=== PATIENT | male | born 1970 | race Caucasian/White ===

== ENCOUNTER 2017-08-23 21:46 | Observation (INO) | payer OTHER ==
[~2017-08-23] VITALS: Ht 188 cm; Wt 132.5 kg
[2017-08-24 00:05] LABS: HEMATOCRIT 44.8 % (38.0-50.0); HEMOGLOBIN 15.2 G/DL (12.5-16.6); MCH 32.4 PG (29.0-34.0); MCHC 33.9 G/DL (30.0-36.0); MCV 95.5 FL (86-99); PLATELET COUNT 203 K/uL (156-360); RBC DIS.WIDTH-CV 13.1 % (11.8-14.6); RBC DIS.WIDTH-SD 46.6 % (39-53); RED BLOOD COUNT 4.69 M/uL (4.00-5.50); WHITE BLOOD COUNT 8.3 K/uL (4.1-10.2)
[2017-08-24 00:14] LABS: CHLORIDE 106 mEq/L (99-109); POTASSIUM 3.7 mEq/L (3.7-5.4); SODIUM 144 mEq/L (136-147)
[2017-08-24 00:16] LABS: GLUCOSE 112 mg/dL (70-99)
[2017-08-24 00:19] LABS: SERUM ETHYL ALCOHOL 358 mg/dL
[2017-08-24 00:20] LABS: GFR ESTIMATE (CALCULATED) > 59 mL/min/ (58.99-99999)
[2017-08-24 00:21] LABS: UREA NITROGEN (BUN) 14 mg/dL (9-23)
[2017-08-24 12:13] LABS: AMPHETAMINE NEGATIVE (500 ng/mL); BENZODIAZEPINES PRESUMPTIVE POSITIVE (150 ng/mL); COCAINE NEGATIVE (150 ng/mL); METHAMPHETAMINE NEGATIVE (500 ng/mL); OPIATES (MORPHINE) NEGATIVE (100 ng/mL); PHENCYCLIDINE NEGATIVE (25 ng/mL); THC CANNABINOIDS NEGATIVE (50 ng/mL)
[2017-08-24 12:14] LABS: BARBITURATES NEGATIVE (200 ng/mL); BUPRENORPHINE NEGATIVE (10 ng/mL); METHADONE NEGATIVE (200 ng/mL); OXYCODONE NEGATIVE (100 ng/mL); PROPOXYPHENE NEGATIVE (300 ng/mL); TRICYCLIC ANTIDEPRESSANTS NEGATIVE (300 ng/mL)
[2017-08-24] MEDS ORDERED: LOSARTAN-HCTZ1 EACH PO (12:32)
[2017-08-24] MEDS ORDERED: AMLODIPINE BESYL5 MG PO (12:32)
[2017-08-24 13:02] LABS: BENZODIAZEPINES, URINE SCREEN Negative (200 ng/mL)
[2017-08-24] MEDS ORDERED: ONE DAILY1 EAC3 PO (14:27)
[2017-08-24] MEDS ORDERED: DICLOFENAC SODI75 MG PO (14:27)
[2017-08-24 15:10] LABS: MAGNESIUM 2.4 mg/dL (1.3-2.7)
[2017-08-24 18:05] VITALS: BP 159/86
[2017-08-24 19:54] VITALS: BP 152/69
[2017-08-24 23:43] VITALS: BP 132/60
[2017-08-25 04:10] VITALS: BP 157/75
[2017-08-25 08:00] VITALS: BP 139/72
[2017-08-25 11:25] VITALS: BP 131/63
[2017-08-25 16:53] VITALS: BP 157/68
[2017-08-25 20:07] VITALS: BP 134/68
[2017-08-25 23:56] VITALS: BP 137/63
[2017-08-26 08:11] VITALS: BP 137/75
[2017-08-26] MEDS ORDERED: XANAX0.25 MG PO (09:46)
[2017-08-26] MEDS ORDERED: CHLORDIAZEPOXID25 MG PO (09:46)
[2017-08-26] MEDS ORDERED: B-1100 MG PO (09:46)
[2017-08-26] MEDS ORDERED: FOLIC ACID1 MG PO (09:46)
== END 2017-08-26 12:21 | disposition home or self-care (01) ==
LOC: EME 21:46 → 5SOUTH 08-24 13:46 → EDOF 08-24 13:46 → ENRESERV 08-24 13:55 → EDOF 08-24 14:21 → ENRESERV 08-24 14:39 → 5SOUTH 08-24 15:58
DX: F10.239 Alcohol dependence with withdrawal, unspecified (principal); I10 Essential (primary) hypertension; F41.9 Anxiety disorder, unspecified; R00.2 Palpitations; Z82.49 Family history of ischemic heart disease and other diseases of the circulatory system
CPT/HCPCS: 80048; 83735; 84999; 85027; 90839; 99281; 99285; G0378; G0480; J2060; J2405; J3411; J7030